=== PATIENT | male | born 1995 | race Caucasian/White ===

== ENCOUNTER 2020-08-17 13:10 | Emergency (ER) | payer BC ==
--- NOTE | 2020-08-17 13:18 | EDM.PDOC ---
ED HPI GENERAL MEDICAL PROBLEM - General Chief Complaint: General Stated Complaint: LACERATION TO LEFT RING FINGER Time Seen by Provider: 08/17/20 13:13 Source of Information: Reports: Patient History Limitations: Reports: No Limitations - History of Present Illness INITIAL COMMENTS - FREE TEXT/NARRATIVE: 24 YO WM PRESENTS TO ER WITH FINGER TIP LACERATION WHICH OCCURRED JUST PRIOR TO ARRIVAL. PT REPORTS HE WAS OPENING A SOUP CAN AND ACCIDENTALLY CUT THE TIP OF HIS LEFT RING FINGER. PT REPORTS BLEEDING CONTROLLED WITH APPLYING PRESSURE TO WOUND. PT DENIES NUMBNESS, OR MOTOR DYSFUNCTION. FINGER IS NEUROVASCULARLY INTACT. PT REPORTS HE CAME TO ER FOR POSSIBLE SUTURES. Onset: Today Location: Reports: Upper Extremity, Left Quality: Reports: Ache Severity: Mild Improves with: Reports: Rest Worsens with: Reports: Movement Associated Symptoms: Reports: No Other Symptoms - Related Data Allergies Allergy/AdvReac Type Severity Reaction Status Date / Time No Known Allergies Allergy Verified 08/17/20 13:33 Home Meds: Home Meds . [No Known Home Meds] 08/17/20 [History] ED ROS GENERAL - Review of Systems Review Of Systems: See Below Constitutional: Reports: No Symptoms HEENT: Reports: No Symptoms Respiratory: Reports: No Symptoms Cardiovascular: Reports: No Symptoms Endocrine: Reports: No Symptoms GI/Abdominal: Reports: No Symptoms : Reports: No Symptoms Musculoskeletal: Reports: Hand Pain Skin: Reports: Wound (LACERATION TO LEFT RING FINGER) Neurological: Reports: No Symptoms Psychiatric: Reports: No Symptoms Hematologic/Lymphatic: Reports: No Symptoms Immunologic: Reports: No Symptoms ED EXAM, GENERAL - Physical Exam Exam: See Below Exam Limited By: No Limitations General Appearance: Alert, WD/WN, No Apparent Distress Head: Atraumatic, Normocephalic Neck: Normal Inspection, Supple, Non-Tender, Full Range of Motion Respiratory/Chest: No Respiratory Distress, Lungs Clear, Normal Breath Sounds, No Accessory Muscle Use, Chest Non-Tender Cardiovascular: Normal Peripheral Pulses, Regular Rate, Rhythm, No Edema, No Gallop, No JVD, No Murmur, No Rub Neurological: Alert, Oriented, CN II-XII Intact, Normal Cognition, Normal Gait, Normal Reflexes, No Motor/Sensory Deficits Psychiatric: Normal Affect, Normal Mood Skin Exam: Wound/Incision (3CM SUPERFICAL LACERATION TO LEFT FINGER TIP) ED GENERAL MEDICAL PROCEDURES - Laceration/Wound Repair Left Distal Digit - 4th (Ring) Lac/wound length in cm: 3 Appearance: Superficial Anesthetic Type: Digital Local Anesthesia - Lidocaine (Xylocaine): 1% Plain Local Anesthetic Volume: Other (10CC) Skin Prep: Chlorhexidine (Hibiciens), Saline Exploration/Debridement/Repair: Wound Explored Closed with: Sutures Suture Size: 5-0 # of Sutures: 4 Suture Type: Nylon, Simple Sterile Dressing Applied: Provider Tetanus Status Addressed: Yes Complications: No Course - Vital Signs Last Recorded V/S: Last Vital Signs Temp 97.7 F 08/17/20 13:15 Pulse 74 08/17/20 13:15 Resp 20 08/17/20 13:15 BP 98/56 L 08/17/20 13:15 Pulse Ox 97 08/17/20 13:15 - Orders/Labs/Meds Orders: Active Orders 24 hr Category Date Time Status Vaccines to be Administered [RC] PER UNIT ROUTINE Care 08/17/20 13:12 Ordered Meds: Medications Discontinued Medications Generic Name Dose Route Start Last Admin Trade Name Pradip PRN Reason Stop Dose Admin Diphtheria/Tetanus/Acell Pertussis 0.5 ml 08/17/20 13:12 Diphtheria,Pertussis(Acell),Tetanus Vaccine 0.5 Ml Syringe IM 08/17/20 13:13 .ONCE ONE Lidocaine HCl 20 ml 08/17/20 13:12 Lidocaine 1% 20 Ml Mdv INJECT 08/17/20 13:13 ONETIME ONE Departure - Departure Time of Disposition: 13:40 Disposition: Home, Self-Care 01 Condition: Good Clinical Impression: Laceration of finger Qualifiers: Encounter type: initial encounter Finger: ring finger Damage to nail status: without damage Foreign body presence: without foreign body Laterality: left Qualified Code(s): S61.215A - Laceration without foreign body of left ring finger without damage to nail, initial encounter - Discharge Information Instructions: Laceration Care, Adult Referrals: Princess Lobato MD [Physician] - Forms: ED Department Discharge Additional Instructions: 1. DISCHARGE HOME 2. WOUND CARE INSTRUCTIONS GIVEN 3. FOLLOW UP WITH PCP 7-10 DAYS FOR SUTURE REMOVAL OR SOONER FOR SIGNS OF INFECTION OE WORSENING SYMPTOMS 4. RETURN TO ER FOR WORSENING SYMPTOMS Sepsis Event Note (ED) - Focused Exam Vital Signs: Vital Signs Temp Pulse Resp BP Pulse Ox 08/17/20 13:15 97.7 F 74 20 98/56 L 97 - My Orders Last 24 Hours: My Active Orders 08/17/20 13:12 Vaccines to be Administered [RC] PER UNIT ROUTINE - Assessment/Plan Last 24 Hours: My Active Orders 08/17/20 13:12 Vaccines to be Administered [RC] PER UNIT ROUTINE Assessment:: 1. 3CM SUPERFICIAL LACERATION TO TIP OF LEFT FINGER Plan: 1. DISCHARGE HOME 2. WOUND CARE INSTRUCTIONS GIVEN 3. FOLLOW UP WITH PCP 7-10 DAYS FOR SUTURE REMOVAL OR SOONER FOR SIGNS OF INFECTION OE WORSENING SYMPTOMS 4. RETURN TO ER FOR WORSENING SYMPTOMS
[2020-08-17 13:33] VITALS: BP 98/56; PULSE 74
[2020-08-17] MEDS: Diphtheria,Pertussis(Acell),Tetanus Vaccine 0.5 ML Syringe IM ONE (13:38)
[2020-08-17] MEDS: Lidocaine 1% 20 ML MDV INJECT ONE (13:41)
== END 2020-08-17 13:50 | disposition home or self-care (01) ==
LOC: KA.ED 13:10
DX: S61.215A Laceration without foreign body of left ring finger without damage to nail, initial encounter (principal); Z23 Encounter for immunization; W26.8XXA Contact with other sharp object(s), not elsewhere classified, initial encounter
CPT/HCPCS: 12002; 90471; 90715; 99282-25; 99283